=== PATIENT | female | born 1960 | race African-American/Black ===

== ENCOUNTER 2021-04-04 09:02 | Day surgery (SDC) | payer BC ==
[~2021-04-04 09:02] MED LIST: Lactated Ringers 1,000 ML IV SCH
[2021-04-04] MEDS ORDERED: Propofol 200 MG/20 ML SDV ONE (10:20)
[2021-04-04] MEDS ORDERED: fentaNYL 100 MCG/2 ML SDV ONE (10:20)
[2021-04-04 12:00] VITALS: BP 164/66; PULSE 69
== END 2021-04-04 12:55 | disposition home or self-care (01) ==
LOC: VM.SDS 09:02
PROVIDERS: ATTEND Student in an Organized Health Care Education/Training Program
DX: K57.30 Diverticulosis of large intestine without perforation or abscess without bleeding (principal); J45.909 Unspecified asthma, uncomplicated; E78.00 Pure hypercholesterolemia, unspecified; D69.6 Thrombocytopenia, unspecified; Z98.890 Other specified postprocedural states
CPT/HCPCS: 00811; J2704; J3010; J7120